=== PATIENT | female | born 1980 | race Caucasian/White ===

== ENCOUNTER 2018-10-17 02:22 | Inpatient (IN) | payer BC, MEDICAID ==
[~2018-10-17] VITALS: Ht 160 cm; Wt 56.7 kg
[2018-10-17] MEDS ORDERED: FAMOTIDINE 20MG/2ML VIAL IV STA (03:20)
[2018-10-17] MEDS ORDERED: ONDANSETRON HCL 4MG/2ML INJ IV STA (03:20)
[2018-10-17] MEDS ORDERED: MORPHINE SULFATE 4 MG/ML CPJ (NOT FOR IM USE) IV STA (03:20)
[2018-10-17] MEDS ORDERED: SODIUM CHLORIDE 0.9% 1,000 ML IV ONE (03:20)
[2018-10-17 03:43] LABS: BASOPHILS % 0.8 % (0.0-2.0); EOSINOPHILS % 1.2 % (0.0-5.0); HEMATOCRIT. 40.4 % (36.0-48.0); HEMOGLOBIN. 13.8 g/dL (12.0-16.0); LYMPHOCYTES % 18.4 % (20.0-50.0); MEAN CORPUSCULAR HEMOGLOBIN 31.8 pg (28.0-32.0); MEAN CORPUSCULAR VOLUME 93.5 fL (81.0-99.0); MEAN PLATELET VOLUME 8.7 fl (7.4-10.4); MONOCYTES % 6.4 % (2.0-8.0); NEUTROPHILS % 73.2 % (40.0-76.0); PLATELET 263 x1000/uL (130-400); RED BLOOD CELL COUNT 4.32 mill/uL (4.2-5.4); RED CELL DISTRIBUTION WIDTH 13.1 % (11.6-14.6)
[2018-10-17 03:49] LABS: CHLORIDE 105 mEq/L (98-107)
[2018-10-17 03:51] LABS: PROTHROMBIN TIME 10.5 sec (9.1-11.1)
[2018-10-17] MEDS ORDERED: PIPERACILLIN/TAZ 3.375G PREMIX 50 ML IV ONE (04:15)
[2018-10-17 04:20] LABS: CLARITY URINE CLEAR (CLEAR); COLOR URINE DARK YELLOW (YELLOW); KETONES URINE NEGATIVE (NEGATIVE); LEUKOCYTE ESTERASE URINE NEGATIVE (NEGATIVE); NITRITE URINE NEGATIVE (NEGATIVE); OCCULT BLOOD URINE NEGATIVE (NEGATIVE); PH URINE 5.5 (4.5-8.0); PROTEIN URINE NEGATIVE (NEGATIVE); SPECIFIC GRAVITY URINE 1.008 (1.005-1.030)
[2018-10-17 04:21] LABS: HCG SCREEN NEGATIVE
[2018-10-17] MEDS ORDERED: CLONIDINE 0.1MG TABLET PO PRN (05:15)
[2018-10-17] MEDS ORDERED: IOHEXOL-300 100 ML BOTTLE ONE (05:25)
[2018-10-17] MEDS: DEXT 5%/0.45% NACL 1000ML 1,000 ML IV SCH ×2 (06:30→18:01)
[2018-10-17] MEDS: ONDANSETRON HCL 4MG/2ML INJ IV PRN (07:12)
[2018-10-17] MEDS: HYDROMORPHONE HCL/PF 2MG/ML CPJ IV PRN ×2 (11:09→21:12)
[2018-10-17 15:33] VITALS: BP 114/78
[2018-10-18] MEDS: ONDANSETRON HCL 4MG/2ML INJ IV PRN (04:16)
[2018-10-18] MEDS: DEXT 5%/0.45% NACL 1000ML 1,000 ML IV SCH ×2 (04:20→21:07)
[2018-10-18 07:42] LABS: BASOPHILS % 0.1 % (0.0-2.0); EOSINOPHILS % 0.2 % (0.0-5.0); HEMATOCRIT. 39.9 % (36.0-48.0); HEMOGLOBIN. 13.5 g/dL (12.0-16.0); LYMPHOCYTES % 10.8 % (20.0-50.0); MEAN CORPUSCULAR HEMOGLOBIN 31.9 pg (28.0-32.0); MEAN CORPUSCULAR VOLUME 94.3 fL (81.0-99.0); MEAN PLATELET VOLUME 8.8 fl (7.4-10.4); MONOCYTES % 6.7 % (2.0-8.0); NEUTROPHILS % 82.2 % (40.0-76.0); PLATELET 260 x1000/uL (130-400); RED BLOOD CELL COUNT 4.23 mill/uL (4.2-5.4)
[2018-10-18 08:00] VITALS: BP 105/65
[2018-10-18 09:49] LABS: CHLORIDE 105 mEq/L (98-107)
[2018-10-18 09:59] LABS: LDL CHOLESTEROL 82 mg/dL (5-100)
[2018-10-18 10:01] LABS: HDL CHOLESTEROL 69 mg/dL (40-59)
[2018-10-18] MEDS: ACETAMINOPHEN 325MG TABLET PO PRN (10:39)
[2018-10-18 12:00] VITALS: BP 97/63
[2018-10-18] MEDS: MORPHINE SULFATE 4 MG/ML CPJ (NOT FOR IM USE) IV PRN ×2 (14:05→20:56)
[2018-10-18 16:00] VITALS: BP 108/68
[2018-10-18 20:00] VITALS: BP 113/71
[2018-10-18] MEDS ORDERED: POTASSIUM CHLORIDE 20MEQ TABLET SR PO NR (20:15)
[2018-10-19] VITALS: BP 104/65
[2018-10-19] MEDS: MORPHINE SULFATE 4 MG/ML CPJ (NOT FOR IM USE) IV PRN (01:33)
[2018-10-19 04:00] VITALS: BP 101/65
[2018-10-19 07:16] LABS: CHLORIDE 105 mEq/L (98-107)
[2018-10-19 07:26] LABS: BASOPHILS % 0.2 % (0.0-2.0); HEMATOCRIT. 37.3 % (36.0-48.0); HEMOGLOBIN. 12.8 g/dL (12.0-16.0); LYMPHOCYTES % 14.3 % (20.0-50.0); MEAN CORPUSCULAR HEMOGLOBIN 32.2 pg (28.0-32.0); MONOCYTES % 6.6 % (2.0-8.0); NEUTROPHILS % 77.9 % (40.0-76.0); PLATELET 240 x1000/uL (130-400); RED BLOOD CELL COUNT 3.97 mill/uL (4.2-5.4); RED CELL DISTRIBUTION WIDTH 13.3 % (11.6-14.6)
[2018-10-19 08:00] VITALS: BP 99/64
[2018-10-19] MEDS: DEXT 5%/0.45% NACL 1000ML 1,000 ML IV SCH ×2 (11:09→22:28)
[2018-10-19 11:59] VITALS: BP 106/68
[2018-10-19] MEDS ORDERED: SIMETHICONE 40 MG/0.6 ML 30ML ONE (12:40)
[2018-10-19] MEDS ORDERED: IOHEXOL-300 100 ML BOTTLE ONE (12:40)
[2018-10-19] MEDS ORDERED: NEOSTIGMINE METHYLSULFATE 1MG/ML 10 ML VIAL ONE (15:12)
[2018-10-19] MEDS ORDERED: FENTANYL CITRATE/PF 50MCG/ML 2ML VIAL ONE ×2 (15:12→15:38)
[2018-10-19] MEDS ORDERED: ROCURONIUM BROMIDE 10MG/ML VIAL 5ML IV ONE (15:12)
[2018-10-19] MEDS ORDERED: METOCLOPRAMIDE HCL 10MG/2ML VIAL ONE (15:13)
[2018-10-19] MEDS ORDERED: GLYCOPYRROLATE 0.2 MG/ML 2ML VIAL ONE (15:13)
[2018-10-19] MEDS ORDERED: SODIUM CHLORIDE 0.9% 10ML VIAL ONE (15:13)
[2018-10-19] MEDS ORDERED: CEFAZOLIN SODIUM 1000MG/VIAL ONE (15:13)
[2018-10-19] MEDS ORDERED: ONDANSETRON HCL 4MG/2ML INJ ONE (15:13)
[2018-10-19] MEDS ORDERED: SUCCINYLCHOLINE CHLORIDE 200MG/10ML IV ONE (15:13)
[2018-10-19] MEDS ORDERED: PROPOFOL 200MG/20ML VIAL IV ONE (15:13)
[2018-10-19] MEDS ORDERED: MIDAZOLAM HCL 2 MG/2 ML VIAL ONE (15:13)
[2018-10-19 15:36] VITALS: BP 120/72
[2018-10-19] MEDS ORDERED: SODIUM CHLORIDE 0.9% 1,000 ML IV ONE (15:56)
[2018-10-19] MEDS ORDERED: MEPERIDINE HCL/PF 25MG/ML CPJ IV PRN (16:00)
[2018-10-19] MEDS ORDERED: ONDANSETRON HCL 4MG/2ML INJ IV PRN (16:00)
[2018-10-19] MEDS ORDERED: MORPHINE SULFATE 4 MG/ML CPJ (NOT FOR IM USE) IV PRN (16:00)
[2018-10-19] MEDS ORDERED: HYDROMORPHONE HCL/PF 2MG/ML CPJ IV PRN (16:00)
[2018-10-19 20:00] VITALS: BP 116/77
[2018-10-19] MEDS: ONDANSETRON HCL 4MG/2ML INJ IV PRN (22:29)
[2018-10-19] MEDS: ACETAMINOPHEN 325MG TABLET PO PRN (22:29)
[2018-10-20] VITALS: BP 97/60
[2018-10-20 04:00] VITALS: BP 106/68
[2018-10-20 08:00] VITALS: BP 110/78
[2018-10-20 11:27] VITALS: BP 110/76
[2018-10-20 12:00] VITALS: BP 115/78
== END 2018-10-20 14:55 | disposition home or self-care (01) | DRG 444 ==
LOC: ER 02:22 → 6EST 04:24 → SUPCPDRO 05:08 → ENRESERV 07:31 → CANRESERV 07:31 → EDBEDREQSVC 08:24 → ENRESERV 14:01
PROVIDERS: ADMIT Hospitalist; ATTEND Hospitalist
PROC: 0F798ZZ Dilation of Common Bile Duct, Via Natural or Artificial Opening Endoscopic (ICD-10-PCS; principal; 2018-10-19)
PROC: 0FC98ZZ Extirpation of Matter from Common Bile Duct, Via Natural or Artificial Opening Endoscopic (ICD-10-PCS; 2018-10-19)
DX: K80.65 Calculus of gallbladder and bile duct with chronic cholecystitis with obstruction (principal); K85.10 Biliary acute pancreatitis without necrosis or infection; E80.6 Other disorders of bilirubin metabolism; Z98.891 History of uterine scar from previous surgery
CPT/HCPCS: 36415; 74177; 74181; 74328; 76705; 80061; 80076; 83605; 84703; 96374; 96375; 99291; C1726; C1769; J0330; J0690; J1170; J2250; J2270; J2405; J2543; J2704; J2710; J2765; J3010; J3490; J7030; Q9967

== ENCOUNTER 2018-11-04 13:08 | Inpatient (IN) | payer BC ==
[~2018-11-04] VITALS: Ht 157.5 cm; Wt 61.2 kg
[2018-11-04] MEDS ORDERED: SODIUM CHLORIDE 0.9% 1,000 ML IV ONE (18:30)
[2018-11-04] MEDS ORDERED: ONDANSETRON HCL 4MG/2ML INJ IV STA (18:30)
[2018-11-04 19:17] LABS: CLARITY URINE CLEAR (CLEAR); COLOR URINE YELLOW (YELLOW); KETONES URINE NEGATIVE (NEGATIVE); LEUKOCYTE ESTERASE URINE NEGATIVE (NEGATIVE); NITRITE URINE NEGATIVE (NEGATIVE); OCCULT BLOOD URINE NEGATIVE (NEGATIVE); PH URINE 8.5 (4.5-8.0); PROTEIN URINE NEGATIVE (NEGATIVE); SPECIFIC GRAVITY URINE 1.022 (1.005-1.030); UROBILINOGEN URINE 0.2 E.U./dL (0.2-1.0)
[2018-11-04 19:22] LABS: BASOPHILS % 0.5 % (0.0-2.0); EOSINOPHILS % 0.1 % (0.0-5.0); HEMATOCRIT. 40.8 % (36.0-48.0); LYMPHOCYTES % 13.1 % (20.0-50.0); MEAN CORPUSCULAR HEMOGLOBIN 31.7 pg (28.0-32.0); MEAN CORPUSCULAR VOLUME 92.5 fL (81.0-99.0); MEAN PLATELET VOLUME 7.9 fl (7.4-10.4); MONOCYTES % 6.3 % (2.0-8.0); PLATELET 502 x1000/uL (130-400); RED BLOOD CELL COUNT 4.42 mill/uL (4.2-5.4); RED CELL DISTRIBUTION WIDTH 12.9 % (11.6-14.6)
[2018-11-04 19:25] LABS: CHLORIDE 100 mEq/L (98-107)
[2018-11-04 19:27] LABS: INR 1.1; PROTHROMBIN TIME 11.2 sec (9.6-11.0)
[2018-11-04] MEDS ORDERED: MORPHINE SULFATE 4 MG/ML CPJ (NOT FOR IM USE) IV ONE (19:30)
[2018-11-04] MEDS ORDERED: PIPERACILLIN/TAZOBACTAM 3.375GM/50ML PREMIX IV ONE (20:15)
[2018-11-04 23:00] VITALS: BP 98/64
[2018-11-04] MEDS ORDERED: LEVOFLOXACIN 500MG PREMIX 100 ML IV SCH (23:30)
[2018-11-04] MEDS ORDERED: MORPHINE SULFATE 4 MG/ML CPJ (NOT FOR IM USE) IV PRN (23:30)
[2018-11-04] MEDS ORDERED: ONDANSETRON HCL 4MG/2ML INJ IV PRN (23:30)
[2018-11-05] VITALS (7 sets, daily range): BP systolic 82–163; BP diastolic 51–70
[2018-11-05] MEDS: DEXT 5%/0.45% NACL 1000ML 1,000 ML IV SCH ×2 (00:25→08:30)
[2018-11-05] MEDS ORDERED: LEVOFLOXACIN 500MG PREMIX 100 ML IV SCH ×2 (01:00→02:00)
[2018-11-05] MEDS ORDERED: PANTOPRAZOLE SODIUM 40 MG/VIAL IV SCH (09:00)
[2018-11-05 09:22] LABS: BASOPHILS % 0.7 % (0.0-2.0); EOSINOPHILS % 1.9 % (0.0-5.0); HEMATOCRIT. 35.9 % (36.0-48.0); LYMPHOCYTES % 16.2 % (20.0-50.0); MEAN CORPUSCULAR HEMOGLOBIN 31.2 pg (28.0-32.0); MEAN CORPUSCULAR VOLUME 93.2 fL (81.0-99.0); MEAN PLATELET VOLUME 8.1 fl (7.4-10.4); MONOCYTES % 7.1 % (2.0-8.0); NEUTROPHILS % 74.1 % (40.0-76.0); PLATELET 394 x1000/uL (130-400); RED BLOOD CELL COUNT 3.85 mill/uL (4.2-5.4); RED CELL DISTRIBUTION WIDTH 12.6 % (11.6-14.6)
[2018-11-05 09:35] LABS: CHLORIDE 108 mEq/L (98-107)
== END 2018-11-05 21:10 | disposition home or self-care (01) | DRG 446 ==
LOC: ER 13:08 → 6EST 20:32 → EDBEDREQTM 20:39 → EDBEDREQ 20:39 → ENRESERV 22:01
PROVIDERS: ADMIT Internal Medicine; ATTEND Internal Medicine
DX: K80.10 Calculus of gallbladder with chronic cholecystitis without obstruction (principal); Z98.891 History of uterine scar from previous surgery
CPT/HCPCS: 36415; 76705; 80076; 81025; 93005; 96361; 96374; 96375; 99285; C9113; J1956; J2270; J2405; J2543; J7030